=== PATIENT | female | born 1950 | race Two or more races ===

== ENCOUNTER 2023-10-17 20:47 | Inpatient (IN) | payer OTHER ==
[~2023-10-17] VITALS: Ht 152.4 cm; Wt 59.9 kg
--- NOTE | 2023-10-17 21:08 | NUR ---
SE LLAMA PACIENTE EN DOS OCASIONES Y NO RESPONDE.
--- NOTE | 2023-10-17 21:09 | NUR ---
PACIENTE ALERTA Y ORIENTADA X3 QUIEN VERBALIZA QUE LLEVA DESDE LA TARDE DE HOY CON RACH DOLOR ABDOMINAL Y VOMITOS (5 EPISODIOS) SE MONITOREAN S/V Y SE UBICA PACIENTE. PACIENTE DEL TOUS.
[2023-10-17] MEDS ORDERED: SYNTHROID88 MCG PO (21:20)
[2023-10-17] MEDS ORDERED: JANUVIA100 MG PO (21:20)
[2023-10-17] MEDS ORDERED: LISINOPRIL10 MG PO (21:20)
[2023-10-17] MEDS ORDERED: CLONAZEPAM1 M1 PO (21:21)
[2023-10-17] MEDS ORDERED: RESTORIL30 M1 PO (21:21)
[2023-10-17] MEDS ORDERED: 0.9 % SODIUM CHLORIDE 1,000 ML IV STA (21:40)
[2023-10-17] MEDS ORDERED: 0.9 % SODIUM CHLORIDE 1,000 ML IV SCH (21:45)
[2023-10-17] MEDS ORDERED: ONDANSETRON HCL 2 MG/ML VIAL IV STA (21:47)
[2023-10-17] MEDS ORDERED: KETOROLAC TROMETHAMINE 30 MG VIAL ONE (22:05)
[2023-10-17] MEDS ORDERED: FAMOTIDINE/PF 20 MG/2 ML VIAL ONE (22:06)
--- NOTE | 2023-10-17 22:20 | NUR ---
SE ORIENTA PTE SOBRE TX MEDICO EL CUAL REFIERE ENTENDER,SE LE EXTRAEN MUESTRAS BAJO MEDIDAS ASEPTICAS,SE CANALIZA Y SE ADMINISTRAN MEDICAMENTOS EVER ORDEN MEDICA.SE ENTREGA CONTRASTE Y SE NOTIFICA CT PENDIENTE.
[2023-10-17] MEDS ORDERED: FAMOTIDINE/PF 20 MG/2 ML VIAL IV PUSH ONE (22:30)
[2023-10-17] MEDS ORDERED: KETOROLAC TROMETHAMINE 30 MG VIAL IV ONE (22:30)
[2023-10-17 23:28] LABS: HEMATOCRIT 44.7 % (36.0-45.00); HEMOGLOBIN 14.6 g/dL (12.0-15.00); MEAN CELL VOLUME 77.3 fL (80.00-100.00); MEAN CORPUSCULAR HEMOGLOBIN 25.3 pg (27.00-32.0); MEAN CORPUSCULAR HGB CONC 32.7 g/dl (32.0-36.0); PLATELET COUNT 308 K/uL (150-450); RED BLOOD COUNT 5.78 M/uL (4.00-6.00); RED CELL DISTRIBUTION WIDTH 17.3 % (11.5-14.5)
[2023-10-17 23:53] LABS: CALCIUM 10.6 mg/dL (8.5-10.1); CREATININE SERUM 0.82 mg/dL (0.55-1.02); GFR 67.96; POTASSIUM 4.55 mEq/L (3.5-5.1)
[2023-10-18 00:47] LABS: PH,URINE 5.5 (5.0-8.0); URINE APPEARANCE Clear; URINE BILIRRUBIN Negative (NEGATIVE); URINE BLOOD Negative; URINE COLOR Yellow; URINE GLUCOSE Negative (NEGATIVE); URINE KETONE 15 (NEGATIVE); URINE LEUKOCYTE Trace; URINE NITRATE Negative; URINE PROTEIN Trace (NEGATIVE)
[2023-10-18 00:50] LABS: URINE BACTERIA 26.4 uL (0.0-1933); URINE EPITHELIAL CELLS 7.8 uL (0.0-38.8); URINE RBC 30.5 uL (0.0-20.8); URINE WBC 49.4 uL (0.0-23.2)
[2023-10-18 01:01] LABS: URINE CAST 0.15 uL (0.0-1.40)
[2023-10-18] MEDS ORDERED: ONDANSETRON HCL 2 MG/ML VIAL IV STA (04:32)
[2023-10-18] MEDS ORDERED: ONDANSETRON HCL 2 MG/ML VIAL ONE (04:34)
[2023-10-18] MEDS ORDERED: MEPERIDINE HCL/PF 50 MG/ML VIAL IM STA (05:58)
--- NOTE | 2023-10-18 06:25 | NUR ---
SE COLOCA TUBO NASOGASTRICO #18 EN FOSSA RT CONECTADO A SUCCION INTERMITENTE. SE OBSERVA EGRESO DE 100ML EN CONTENEDOR. SE COLOCA CABECERA A 30GRADOS, SE ADMINISTRA MEDICAMENTO IM EL CUAL PTE TOLERA. SE ORIENTA A PTE SOBRE CONSULTA PENDIENTE.
[2023-10-18] MEDS ORDERED: METRONIDAZOLE/SODIUM CHLORIDE 500 MG/100 ML PIGGYBACK IV SCH (10:00)
[2023-10-18] MEDS ORDERED: HYOSCYAMINE SULFATE 0.125 MG TAB.SUBL SL SCH (10:00)
[2023-10-18] MEDS ORDERED: POLYETHYLENE GLYCOL 3350 17 GM BLIST.PACK PO SCH (10:00)
[2023-10-18] MEDS ORDERED: RINGERS SOLUTION,LACTATED 1,000 ML IV SCH (10:00)
[2023-10-18] MEDS ORDERED: CIPROFLOXACIN IN 5 % DEXTROSE 400 MG/200 ML PIGGYBAG IV SCH (10:00)
[2023-10-18] MEDS ORDERED: LACTULOSE 20 G/30 ML BLIST.PACK PO SCH (10:00)
[2023-10-18] MEDS ORDERED: MORPHINE SULFATE 4 MG/ML VIAL IV PRN (10:00)
[2023-10-18] MEDS ORDERED: ONDANSETRON HCL 2 MG/ML VIAL IV PRN (10:00)
[2023-10-18] MEDS ORDERED: LACTOBACILLUS ACIDOPHILUS 1 CAP CAP PO SCH (10:00)
[2023-10-18] MEDS ORDERED: MINERAL OIL 30 ML BLIST.PACK PO SCH (10:03)
[2023-10-18] MEDS ORDERED: CIPROFLOXACIN IN 5 % DEXTROSE 400 MG/200 ML PIGGYBAG IV ONE ×2 (10:40→21:33)
[2023-10-18] MEDS ORDERED: HYOSCYAMINE SULFATE 0.125 MG TAB.SUBL ONE ×2 (10:40→15:54)
[2023-10-18] MEDS ORDERED: METRONIDAZOLE/SODIUM CHLORIDE 500 MG/100 ML PIGGYBACK IV ONE ×2 (10:41→15:54)
[2023-10-18] MEDS ORDERED: LACTULOSE 20 G/30 ML BLIST.PACK ONE (10:41)
[2023-10-18] MEDS ORDERED: MINERAL OIL 30 ML BLIST.PACK ONE (10:41)
[2023-10-18] MEDS ORDERED: LACTOBACILLUS ACIDOPHILUS 1 CAP CAP PO ONE (10:41)
[2023-10-18 11:15] LABS: INR 1.04; PARTIAL THROMBOPLASTIN TIME 26.9 SECONDS (22.0-34.0); PROTHROMBIN TIME 10.9 SECONDS (9.0-11.5)
[2023-10-18] MEDS ORDERED: PROLIA60 MG/1 ML (15:25)
[2023-10-18] MEDS ORDERED: ROSUVASTATIN CA20 MG (15:25)
[2023-10-18] MEDS ORDERED: METOPROLOL SUCC50 MG (15:25)
[2023-10-18] MEDS ORDERED: VITAMIN D325 MC2 (15:25)
[2023-10-18] MEDS ORDERED: FAMOTIDINE40 MG (15:25)
[2023-10-18] MEDS ORDERED: LANSOPRAZOLE30 MG (15:25)
[2023-10-18] MEDS ORDERED: CYANOCOBAL1000 MCG/1 (15:25)
[2023-10-18] MEDS ORDERED: MORPHINE SULFATE 4 MG/ML CARTRIDGE IV PRN (16:45)
[2023-10-18] MEDS ORDERED: LISINOPRIL 10 MG TABLET PO SCH (17:00)
[2023-10-18] MEDS ORDERED: TEMAZEPAM 15 MG CAPSULE PO SCH (17:00)
[2023-10-18] MEDS ORDERED: CLONAZEPAM 1 MG TABLET PO SCH (17:00)
[2023-10-18] MEDS ORDERED: METOPROLOL SUCCINATE 50 MG TAB.SR.24H PO SCH (17:00)
[2023-10-18] MEDS ORDERED: FAMOTIDINE/PF 20 MG/2 ML VIAL IV SCH (21:00)
[2023-10-18] MEDS ORDERED: FAMOTIDINE/PF 20 MG/2 ML VIAL ONE (21:33)
[2023-10-19] MEDS ORDERED: LEVOTHYROXINE SODIUM 88 MCG TABLET PO SCH (06:00)
[2023-10-19 08:39] LABS: HEMATOCRIT 33.7 % (36.0-45.00); HEMOGLOBIN 11.2 g/dL (12.0-15.00); MEAN CELL VOLUME 76.6 fL (80.00-100.00); MEAN CORPUSCULAR HEMOGLOBIN 25.5 pg (27.00-32.0); MEAN CORPUSCULAR HGB CONC 33.3 g/dl (32.0-36.0); PLATELET COUNT 248 K/uL (150-450); RED BLOOD COUNT 4.41 M/uL (4.00-6.00); RED CELL DISTRIBUTION WIDTH 17.1 % (11.5-14.5)
[2023-10-19 09:39] LABS: ALBUMIN 2.8 gm/dL (3.4-5.0); CALCIUM 8.2 mg/dL (8.5-10.1); CREATININE SERUM 0.51 mg/dL (0.55-1.02); GFR 117.56; MAGNESIUM 2.1 mg/dL (1.8-2.4); PHOSPHOROUS 2.5 mg/dL (2.5-4.9); POTASSIUM 4.08 mEq/L (3.5-5.1)
[2023-10-19] MEDS ORDERED: ENOXAPARIN SODIUM 40 MG/0.4 ML SYRINGE SUBCUTANEO SCH (17:00)
== END 2023-10-19 15:32 | disposition home or self-care (01) | DRG 390 ==
LOC: ER 20:48 → SEC-K 10-18 10:08 → SURG 10-18 17:59 → SURH 10-18 18:56
PROVIDERS: Emergency Medicine; ADMIT Colon & Rectal Surgery; ATTEND Colon & Rectal Surgery
DX: K56.609 Unspecified intestinal obstruction, unspecified as to partial versus complete obstruction (principal); Z20.822 Contact with and (suspected) exposure to COVID-19